=== PATIENT | male | born 1970 | race Caucasian/White ===

== ENCOUNTER 2019-03-16 09:14 | Emergency (ER) | payer OTHER ==
[2019-03-16 09:57] VITALS: BP 170/99
--- NOTE | 2019-03-16 10:43 | UC ---
Hand/Wrist HPI - HPI Summary HPI Summary: left hand pain x 2 months crushing injury to his left hand / wrist at work back n 01/11/19 pain and swelling of the left hand / wrist swelling is getting bigger - History Of Current Complaint Chief Complaint: UCUpperExtremity Stated Complaint: WC-LT HAND INJURY Time Seen by Provider: 03/16/19 09:52 Hx Obtained From: Patient Mechanism Of Injury: crushing injury of left hand Onset/Duration: Sudden Onset, Lasting Weeks - 8, Still Present Severity Initially: Moderate Severity Currently: Moderate Pain Intensity: 7 Character Of Pain: Aching, Throbbing Aggravating Factor(s): Movement, Lifting, Flexion, Extension Alleviating Factor(s): Nothing Associated Signs And Symptoms: Positive: Swelling. Negative: Redness, Bruising , Fever, Weakness, Numbness/Tingling - Allergies/Home Medications Allergies/Adverse Reactions: Allergies Allergy/AdvReac Type Severity Reaction Status Date / Time No Known Allergies Allergy Verified 03/16/19 09:57 Home Medications: Home Medications NK [No Home Medications Reported] 03/16/19 [History Confirmed 03/16/19] PMH/Surg Hx/FS Hx/Imm Hx Previously Healthy: Yes - Surgical History Surgical History: None - Family History Known Family History: Positive: Hypertension Negative: Diabetes - Social History Alcohol Use: Occasionally Substance Use Type: None Smoking Status (MU): Former Smoker - Immunization History Most Recent Tetanus Shot: APPROX 3 YRS AGO Review of Systems All Other Systems Reviewed And Are Negative: Yes Constitutional: Positive: Negative Skin: Positive: Negative Eyes: Positive: Negative ENT: Positive: Negative Is Patient Immunocompromised?: No Physical Exam Triage Information Reviewed: Yes Appearance: Well-Appearing, No Pain Distress, Well-Nourished Vital Signs: Initial Vital Signs Temp 97.5 F 03/16/19 09:50 Pulse 69 03/16/19 09:50 Resp 16 03/16/19 09:50 BP 170/99 03/16/19 09:50 Pulse Ox 99 03/16/19 09:50 Vital Signs Reviewed: Yes Eye Exam: Normal Eyes: Positive: Conjunctiva Clear ENT: Positive: Normal ENT inspection, Hearing grossly normal, Pharynx normal Neck: Positive: Supple, Nontender, No Lymphadenopathy Respiratory: Positive: Chest non-tender, Lungs clear, Normal breath sounds Cardiovascular: Positive: RRR, No Murmur, Pulses Normal Musculoskeletal: Positive: Other: - left hand : no swelling, no erythema, + swolling wrist and laso left palm + tender to touch, Diagnostics - Radiology No standard instances Radiology Interpretation Completed By: Radiologist Summary of Radiographic Findings: left hand xray : IMPRESSION: OSTEOARTHRITIS. NO ACUTE OSSEOUS INJURY. IF SYMPTOMS PERSIST, RECOMMEND REPEAT IMAGING. Hand/Wrist Course/Dx - Differential Dx/Diagnosis Provider Diagnosis: Ganglion cyst Discharge - Sign-Out/Discharge Documenting (check all that apply): Patient Departure All imaging exams completed and their final reports reviewed: Yes - Discharge Plan Condition: Stable Disposition: HOME Patient Education Materials: Ganglion Cyst Removal (DC) Referrals: Gerson Gonzales MD [Medical Doctor] - As Soon As Possible No Primary Care Phys,NOPCP [Primary Care Provider] - - Billing Disposition and Condition Condition: STABLE Disposition: Home
== END 2019-03-16 10:45 | disposition home or self-care (01) ==
LOC: UCCORT 09:14
DX: M67.442 Ganglion, left hand (principal); M19.042 Primary osteoarthritis, left hand; Z87.891 Personal history of nicotine dependence
CPT/HCPCS: 99201; G0463